=== PATIENT | male | born 1955 | race Caucasian/White ===

== ENCOUNTER 2018-10-17 15:18 | Observation (INO) ==
[2018-10-17] MEDS ORDERED: ASPIRIN PO ONE (15:31)
--- NOTE | 2018-10-17 15:45 | EKG Report ---
Test Performed on : 10/17/2018 3:23:21 PM Test Reason : cp Blood Pressure : / mmHG Vent. Rate : 070 BPM Atrial Rate : 070 BPM P-R Int : 116 ms QRS Dur : 082 ms QT Int : 394 ms P-R-T Axes : 086 022 019 degrees QTc Int : 425 ms Normal sinus rhythm. Normal ECG No previous ECGs available Unconfirmed Result
--- NOTE | 2018-10-17 16:00 | Diag Imaging Result Doc PS360 ---
EXAM: CHEST-2 VIEWS 10/17/2018 HISTORY: cp TECHNIQUE: PA and lateral chest COMMENT: There are sternotomy wires. There is COPD. There is apparent atelectasis or fibrosis in both lung bases particularly anteriorly. There are no previous studies available for comparison. IMPRESSION: COPD. Atelectasis versus fibrosis particularly in the anterior left base. Electronically signed by Amado Walls 10/17/2018 3:57 PM
[2018-10-17 16:13] LABS: PTT 28.9 Seconds (22.3-41.8)
[2018-10-17 16:16] LABS: BASO# 0.13 X1000 (0.0-0.2); BASO% 1.5 % (0.0-0.8); EOS# 0.87 X1000 (0.0-0.7); EOS% 9.8 % (0.0-10.0); HEMATOCRIT 42.5 % (42.0-52.0); HEMOGLOBIN 14.5 g/dL (14.0-18.0); LYMPH# 2.68 X1000 (1.2-3.4); LYMPH% 30.1 % (20.5-51.1); MCH 29.8 PG (27-31); MCHC 34.1 g/dL (33-37); MCV 87.3 FL (81-99); MONO# 0.78 X1000 (0.11-0.59); MONO% 8.8 % (1.7-9.3); NEUT# 4.44 X1000 (1.4-6.5); NEUT% 49.8 % (42.2-75.2); PLT 408 X1000 (130-400); RBC 4.87 XMIL (4.7-6.1); RDW 13.9 % (11.5-14.5)
[2018-10-17 16:33] LABS: ALB/GLOB RATIO 1.4; ALBUMIN 4.5 g/dL (3.5-5.0); CREATININE 1.7 mg/dL (0.7-1.2); POTASSIUM 4.4 mmol/L (3.5-5.1); TOTAL BILIRUBIN 0.33 mg/dL (0.20-1.00); TOTAL PROTEIN 7.8 g/dL (6.3-8.3)
[2018-10-17] MEDS ORDERED: ASPIRIN ONE (20:10)
[2018-10-17] MEDS ORDERED: LIPITOR PO SCH (21:00)
[2018-10-17] MEDS ORDERED: DUONEB (A & A) INH PRN (21:42)
[2018-10-17] MEDS ORDERED: NS 1,000 ML IV PRN (21:53)
--- NOTE | 2018-10-17 21:59 | HISTORY AND PHYSICAL ---
PRIMARY CARE PHYSICIAN: Dr. Meyer. CHIEF COMPLAINT: Chest pain. HISTORY OF PRESENTING ILLNESS: A 62-year-old male, with a history of coronary artery disease, hyperlipidemia, and diabetes mellitus type 2, who presented to emergency department with 3 months history of having intermittent chest pain. Patient states that it was worse with exertion and was mostly substernal, pressure-like, and he was nauseated. For the past several days, his chest pain seemed to be worsening and he was having shortness of breath, and subsequently he had come to the emergency department. In the ED, he was evaluated and due to the presenting symptoms, it was thought that he would need admission for further management. At the time of my examination, patient denied any headache, fever, chills, hemoptysis, melena, weight changes, but complained of chest pain and shortness. PAST MEDICAL HISTORY: Includes: 1. Diabetes mellitus type 2. 2. Hyperlipidemia. 3. Coronary artery disease. PAST SURGICAL HISTORY: Coronary artery bypass. ALLERGIES: No known drug allergies. CURRENT MEDICATIONS: Include: 1. Aspirin 81 mg p.o. daily. 2. Atorvastatin 20 mg p.o. at bedtime. 3. Fenofibrate 145 mg p.o. daily. 4. Tramadol 50 mg p.o. t.i.d. SOCIAL HISTORY: He is a former smoker. No history of alcohol or illicit drug use. FAMILY HISTORY: Positive for coronary artery disease in his father. REVIEW OF SYSTEMS: A 14 point review of systems is as in HPI. Other systems negative. PHYSICAL EXAMINATION: GENERAL: Cooperative, friendly male. He is resting comfortably now. VITAL SIGNS: Temperature 98.0 degrees, pulse 71, respirations 18, blood pressure 148/88, saturating 98%. HEENT: Atraumatic, normocephalic. Extraocular movements intact. PERRLA. NECK: Supple. CHEST: Clear to auscultation. CARDIOVASCULAR: Regular rate and rhythm. ABDOMEN: Soft. Positive bowel sounds. EXTREMITIES: No edema. NEUROLOGIC: He is awake, alert, oriented x3. : No bladder distention. SKIN: Warm. WBCs 8.90, hemoglobin 14.5, hematocrit 42.5, platelets 408,000. Sodium 142, potassium 4.4, chloride 107, CO2 is 21, BUN is 26, creatinine is 1.7, glucose 92. Chest x-ray shows COPD. ASSESSMENT: This is a 62-year-old male, with a history of diabetes mellitus type 2, hypertension, coronary artery disease, who presented to emergency department with 3 months history of worsening chest pain with exertion. He was evaluated in the emergency department. Due to his presenting symptoms, he will require admission for further management. 1. Chest pain. 2. Coronary artery disease. 3. Diabetes mellitus type 2. 4. Hyperlipidemia. 5. Renal insufficiency. PLAN: 1. We will admit patient to medical floor with telemetry. 2. Continue with cardiac workup. Check EKG, serial cardiac enzymes. Have patient continue on aspirin. Will use sublingual nitroglycerin and morphine p.r.n. chest pain. 3. We will consult Cardiology. 4. We will put patient on glycemic protocol with sliding scale insulin regimen. 5. We will restart his home medications. 6. We will monitor renal function. 7. Continue gentle hydration. 8. Put patient on deep venous thrombosis prophylaxis with sequential compression devices. 9. We will continue to follow and reassess, and make further recommendations based on patient's clinical course. cc: Paul Fajardo MD MTDD
--- NOTE | 2018-10-17 22:01 | PROVIDER DOCUMENTATION ---
This chart was entered by Anjelica Vences Scribe, acting as scribe for Claudia Amos CRNP. HPI-Chest Pain - General Chief Complaint: Chest Pain Stated Complaint: CHEST PAIN Time Seen by Provider: 10/17/18 19:21 Source: patient Allergies/Adverse Reactions: Patient Allergies Allergy/AdvReac Type Severity Reaction Status Date / Time No Known Allergies Allergy Verified 07/08/17 23:38 Home Medications: Home Medication List Medication Instructions Recorded Confirmed Last Taken Type Aspirin [Adult Low Dose Aspirin EC] 81 mg PO DAILY 10/17/18 10/17/18 Unknown History Atorvastatin Calcium 20 mg PO QHS 10/17/18 10/17/18 Unknown History Fenofibrate [Tricor] 1 tab PO DAILY 10/17/18 10/17/18 Unknown History Multivit-Minerals/FA/Lycopene [One 1 tab PO DAILY 10/17/18 10/17/18 Unknown History Daily For Men Tablet] [place]-3 Fatty Acids/Fish Oil [Fish 1 cap PO TID 10/17/18 10/17/18 Unknown History Oil 1,000 mg Capsule] Tramadol [Ultram] 50 mg PO TID PRN 10/17/18 10/17/18 Unknown History - History of Present Illness-CP Nature of Presenting Problem: 62 y/o male presents to ED with intermittent, squeezing sternal chest pain radiating to bilateral arms and between shoulder blades and nausea onset several months ago. Pt reports activity exacerbates his pain. Pt is alert and oriented. Location: reports: central Chest Pain Radiation: reports: arms, back (between shoulder blades) Quality of Pain: reports: other (squeezing) Severity in ED: moderate Onset/Duration: other (several months ago) Timing: still present, intermittent Context/Activities at Onset: reports: none Modifying Factors: improves with: lying down. worse with: exercise Associated Symptoms: reports: back pain, nausea Nitro Today/Relief: no nitro taken today Aspirin Treatment Today: 325 mg x 1, provided by ED Prior Chest Pain/Cardiac Workup: reports: cardiac cath, other (CABG) Similar Symptoms Previously?: Yes Recently Seen Here or By Another Healthcare Provider: No Review of Systems - Adult - REVIEW OF SYSTEMS - ADULT Constitutional: denies: chills, fever Eyes: reports: no symptoms reported Ears, Nose, Mouth & Throat: reports: no symptoms reported Cardiovascular: reports: chest pain (radiates to bilateral arms and between shoulder blades). denies: palpitations Respiratory: denies: cough, shortness of breath Gastrointestinal: reports: nausea. denies: abdominal pain, diarrhea, vomiting Genitourinary: reports: no symptoms reported Musculoskeletal: reports: back pain. denies: joint pain Integumentary: reports: no symptoms reported Neurological: denies: dizziness/vertigo, seizure Psychiatric: reports: no symptoms reported Endocrine: reports: no symptoms reported Hematologic/Lymphatic: reports: no symptoms reported Allergic/Immunologic: reports: no symptoms reported All Other Systems: Reviewed and Negative Past History - Adult - PAST MEDICAL HISTORY-ADULT Review of Records: reports: Old Records Reviewed, Nursing Assessment Review, Medications Reviewed Major Childhood Illnesses: reports: denies history Cardiovascular: reports: HTN, MA Endocrine/Immune: reports: Diabetes - PRIOR SURGERIES/PROCEDURES Surgical/Procedure History: reports: CABG, gastric bypass - IMMUNIZATION STATUS Childhood Immunizations: See Nurse Assessment Flu Vaccine: See Nurse Assessment - FAMILY HISTORY Family History: reviewed, not pertinent - SOCIAL HISTORY Smoking: quit greater than 1 year Substance Use: none/never Alcohol Use Frequency: never Living Situation: family Physical Exam-General - PHYSICAL EXAM-ADULT Initial Vital Signs Reviewed: Yes - CONSTITUTIONAL General Appearance: appears well, alert, no apparent distress - EYES Eyes: PERRL/EOMI, pink conjunctivae - HEAD, EARS, NOSE, MOUTH & THROAT HENMT: normocephalic/atraumatic, moist mucous membranes, normal ENT inspection - NECK Neck: non-tender, full range of motion - RESPIRATORY Respiratory: lungs clear, normal breath sounds, other (sternal tenderness) - CARDIOVASCULAR Cardiovascular: normal peripheral pulses, regular rate, rhythm - GASTROINTESTINAL (ABDOMEN) Abdominal Exam: normal bowel sounds, non tender, soft - MUSCULOSKELETAL Back Exam: normal inspection, no CVA tenderness Extremity: normal range of motion, non-tender, normal gait - SKIN Integumentary: normal color, warm/dry - NEUROLOGIC Neurologic: grossly normal - PSYCHIATRIC Psych/Mental Status: normal mood/affect, normal thought content, normal thought process - HEART Score HEART Score: History: Moderately Suspicious HEART Score: ECG: Normal HEART Score: Age: 45-65 Years HEART Score: Risk Factors for Atherosclerotic Disease: > or = 3 Risk Factors or History of Atherosclerotic Disease HEART Score: Troponin: < or = Normal Limit Total HEART Score:: 4 Progress - PLAN OF CARE/RESULTS Progress/Plan/Lab Results: Vital Signs - 8 hr 10/17/18 15:29 10/17/18 19:15 10/17/18 19:32 Temperature 98.0 F 97.8 F Pulse Rate 71 60 60 Respiratory Rate 18 18 16 Blood Pressure 148/88 146/77 180/88 O2 Sat by Pulse Oximetry 98 100 100 10/17/18 19:34 10/17/18 19:35 10/17/18 19:50 Temperature Pulse Rate 55 L 56 L 55 L Respiratory Rate 16 14 12 Blood Pressure 157/86 O2 Sat by Pulse Oximetry 99 99 99 10/17/18 20:01 Temperature Pulse Rate 57 L Respiratory Rate 14 Blood Pressure 147/80 O2 Sat by Pulse Oximetry 99 Laboratory Results - last 24 hr 10/17/18 10/17/18 10/17/18 15:32 15:32 15:32 WBC 8.90 RBC 4.87 Hgb 14.5 Hct 42.5 MCV 87.3 MCH 29.8 MCHC 34.1 RDW Std Deviation 13.9 Plt Count 408 H MPV 9.0 Immature Gran % (Auto) 0.0 Neut % (Auto) 49.8 Lymph % (Auto) 30.1 Fajardo % (Auto) 8.8 Eos % (Auto) 9.8 Baso % (Auto) 1.5 H Immature Gran # (Auto) 0.00 Neut # (Auto) 4.44 Lymph # (Auto) 2.68 Fajardo # (Auto) 0.78 H Eos # (Auto) 0.87 H Baso # (Auto) 0.13 PT INR PTT (Actin FS) Sodium 142 Potassium 4.4 Chloride 107 Carbon Dioxide 21 L Anion Gap 14 BUN 26 H Creatinine 1.7 H Estimated GFR/1.73 m2 41 BUN/Creatinine Ratio 15 Glucose 92 Calculated Osmolality 288 Calcium 9.0 Total Bilirubin 0.33 AST 23 ALT 13 Alkaline Phosphatase 56 Creatine Kinase 149 Troponin T Ban-K-Qlihohggxrq Pept 483 H Total Protein 7.8 Albumin 4.5 Globulin 3.3 Albumin/Globulin Ratio 1.4 10/17/18 10/17/18 15:32 15:32 WBC RBC Hgb Hct MCV MCH MCHC RDW Std Deviation Plt Count MPV Immature Gran % (Auto) Neut % (Auto) Lymph % (Auto) Fajardo % (Auto) Eos % (Auto) Baso % (Auto) Immature Gran # (Auto) Neut # (Auto) Lymph # (Auto) Fajardo # (Auto) Eos # (Auto) Baso # (Auto) PT 14.0 INR 1.00 PTT (Actin FS) 28.9 Sodium Potassium Chloride Carbon Dioxide Anion Gap BUN Creatinine Estimated GFR/1.73 m2 BUN/Creatinine Ratio Glucose Calculated Osmolality Calcium Total Bilirubin AST ALT Alkaline Phosphatase Creatine Kinase Troponin T < 0.010 Xvi-C-Rigpkmrsduj Pept Total Protein Albumin Globulin Albumin/Globulin Ratio Orders Category Date Time Status Admit [facility] Routine AdmDCTranf 10/17/18 21:53 Active Activity - Up with Assistance ORDERED Care 10/17/18 21:53 Active Apply Mechanical Device [QM] ORDERED Care 10/17/18 21:53 Active Cardiac Monitoring DIRECTED Care 10/17/18 15:32 Completed FSBS/Accucheck Result AC + HS Care 10/17/18 21:53 Active Intake and Output-Strict ORDERED Care 10/17/18 21:53 Active Nursing- MD Consult Request ROUTINE Care 10/17/18 21:53 Active Vital Signs Order Q 8-HR ASSESS Care 10/17/18 21:53 Active Z-Document. for Tele Applied ORDERED Care 10/17/18 21:53 Active Physician/Provider Consults Routine Cons 10/17/18 21:53 Ordered NPO Diet 10/18/18 00:01 Active CHEST-2 VIEWS [RAD] Stat Exams 10/17/18 15:32 Completed BASIC METABOLIC PANEL [CHEM] Routine Lab 10/18/18 06:00 Ordered CBC WITH ELECTRONIC DIFF [HEME] Stat Lab 10/17/18 15:32 Completed CBC WITH NO DIFF [HEME] Routine Lab 10/18/18 06:00 Ordered CK PROFILE [SP CHEM] Stat Lab 10/17/18 15:32 Completed COMPREHENSIVE METABOLIC PANEL [CHEM] Stat Lab 10/17/18 15:32 Completed PRO B-NATRIURETIC PEPTIDE Stat Lab 10/17/18 15:32 Completed PROTIME WITH INR [COAG] Stat Lab 10/17/18 15:32 Completed PTT [COAG] Stat Lab 10/17/18 15:32 Completed TROPONIN T Q8HR Lab 10/18/18 05:00 Ordered TROPONIN T Q8HR Lab 10/18/18 13:00 Ordered TROPONIN T Q8HR Lab 10/18/18 21:00 Ordered TROPONIN T Stat Lab 10/17/18 15:32 Completed 0.9% Sodium Chloride Inj [Ns] 1,000 ml Med 10/17/18 21:53 Active IV 75 mls/hr ATORVAstatin [Lipitor] Med 10/18/18 21:00 Ordered 20 mg PO QHS Albuterol 2.5MG/Ipratrop 0.5MG [Duoneb (A & A)] Med 10/17/18 21:42 Discontinued 3 ml INH RTQ4H PRN Aspirin Med 10/17/18 20:10 Discontinued 325 mg .ROUTE .STK-MED ONE Aspirin Med 10/17/18 15:31 Discontinued 325 mg PO NOW ONE Aspirin EC Med 10/18/18 09:00 Ordered 81 mg PO DAILY Fenofibrate [Tricor] Med 10/18/18 09:00 Ordered DOSE mg PO DAILY Insulin Human Regular [Humulin R] Med 10/18/18 07:00 Active See Protocol SUBQ 0700,1100,1600,2100 Multivit-Minerals/FA/Lycopene [One Daily For Men Tablet Med 10/18/18 09:00 Ordered ] 1 tab PO DAILY [place]-3 Fatty Acids/Fish Oil [Fish Oil 1,000 mg Capsule Med 10/18/18 09:00 Ordered ] 1 cap PO TID Aerosol Treatments Routine Oth 10/17/18 21:42 Active Aerosol Treatments Stat Oth 10/17/18 21:42 Active Telemetry [OM.EQ] Routine Oth 10/17/18 21:53 Active EKG [EKG] Stat Ther 10/17/18 15:32 Draft Transfer/Admit Order [TRANSFER] Routine Transfer 10/17/18 21:38 Completed Result Diagrams: 10/17/18 15:32 10/17/18 15:32 - EKG 1 Time of EKG reading by physician:: 19:21 EKG Read and Signed by:: Kayden Tafoya EKG Interpretation (*Must complete 3 of following elements*): Normal Rate: 70 Rhythm: NSR [place]: normal QRS: normal MS Interval: normal ST Wave: normal - XRAY 1 XRAY Study: Chest Impression: Abnormal ([facility] [address], [address], [place] [address] Department of Imaging Patient: BRENDAN HUGGINSADM Date: 10/17/18MR#: [id number] : 7ADM Status: PRE ERAcct#: [id number] Age/Sex: 62/MRoom/Bed: Loc: ED Ordering Physician: Timothy Rios MD Family Physician: Flynn Meyer MD Reason for Procedure: cp Signed EXAM: CHEST-2 VIEWS 10/17/2018 HISTORY: cp TECHNIQUE: PA and lateral chest COMMENT: There are sternotomy wires. There is COPD. There is apparent atelectasis or fibrosis in both lung bases particularly anteriorly. There are no previous studies available for comparison. IMPRESSION: COPD. Atelectasis versus fibrosis particularly in the anterior left base. Electronically signed by Amado Walls 10/17/2018 3:57 PM 10/17/18 155 Interpreting Physician: Amado Walls MD Dictated Date/Time: 10/17/181556 cc: Timothy Rios MD; Flynn Meyer MD) - CONSULTS/PCP/HOSPITALIST Notification #1 *Consult/PCP/Hospitalist*: Dr. Fajardo Time Discussed: 19:36 Reason/Comments: Chest pain Consult Disposition: Admit Departure - Departure Date of Disposition Decision: 10/17/18 Time of Disposition Decision: 19:27 DIAGNOSIS: Chest pain Qualifiers: Chest pain type: unspecified Qualified Code(s): R07.9 - Chest pain, unspecified Disposition: ADMITTED INPATIENT 09 Certified Medical Emergency: Emergent Condition: Stable Referrals and Follow-Ups: Flynn Meyer MD [Primary Care Provider] - - Critical Care Note This patient required my direct & personal management of CC.: No Attestation - Physician/ JD Attestation Patient care was provided by Advanced Practice Provider:: Yes Advanced Practice Provider:: Claudia Amos Advanced Practice Provider documentation review:: The Mid-level provider alisha patiño, treatment plan and medical decision making was reviewed by the physician who agrees with all treatment and medical decision making by the MLP. The physician spent face to face time with patient:: No Advanced Practice Provider documentation review:: Supervising physician onsite and consulted in the evaluation and care of this patient. The physician did not have a face to face encounter with the patient. This chart was documented by the indicated scribe, (Anjelica Vences, Jorge) and accurately reflects the services I performed and decisions made by , Claudia Amos CRNP, as attested by the provider's signature.
[2018-10-17] MEDS: FISH OIL CONCENTRATE PO SCH (23:36)
[2018-10-18] MEDS: HUMULIN R SUBQ SCH ×4 (06:03→21:09)
[2018-10-18 08:38] LABS: HEMATOCRIT 43.3 % (42.0-52.0); HEMOGLOBIN 14.5 g/dL (14.0-18.0); MCH 29.9 PG (27-31); MCHC 33.5 g/dL (33-37); MCV 89.3 FL (81-99); MPV 8.7 FL (7.4-10.4); RBC 4.85 XMIL (4.7-6.1); RDW 14.4 % (11.5-14.5); WBC 7.24 X1000 (4.8-10.8)
[2018-10-18 09:01] LABS: CALCIUM 9.1 mg/dL (8.8-10.2); CREATININE 1.5 mg/dL (0.7-1.2)
--- NOTE | 2018-10-18 09:57 | EKG Report ---
Test Performed on : 10/18/2018 09:38:14 AM Test Reason : chest pain Blood Pressure : / mmHG Vent. Rate : 058 BPM Atrial Rate : 058 BPM P-R Int : 124 ms QRS Dur : 084 ms QT Int : 440 ms P-R-T Axes : 076 018 035 degrees QTc Int : 431 ms Sinus bradycardia. Otherwise normal ECG When compared with ECG of 17-OCT-2018 15:23, (Unconfirmed) No significant change was found Confirmed by Sara BIGGS, Idris Crawford ([id number]) on 10/19/2018 11:59:54 AM
--- NOTE | 2018-10-18 11:52 | CARDIOLOGY CONSULTATION ---
DATE: 10/18/2018 SUBJECTIVE: A 62-year-old, gentleman, with known history of coronary artery disease, coronary artery bypass grafting, who has been doing well. For the last 4 months he has been complaining of having noticed increasing episodes of chest discomfort. This has gradually worsened. He has retrosternal chest discomfort on significant exertion, which is radiating to the back and down both arms. These symptoms of late have been on a daily occurrence. Associated with the chest pain he has some shortness of breath, and symptoms are relieved with rest. He came to the emergency room and was subsequently admitted. REVIEW OF SYSTEMS: A 14-point review of system was done.GI System: There is no history of nausea, vomiting, or diarrhea. There is no history of hematemesis or melena. Central nervous system: No focal weakness to suggest a CVA or TIA. System: There is no dysuria or hematuria. Respiratory System: There is no history of cough, expectoration, or hemoptysis. Constitutional: There is no history of fevers or chills. PAST MEDICAL HISTORY: Coronary artery disease, status post coronary artery bypass grafting, on 06/15/2004 with TAVARES to left anterior descending artery, saphenous vein graft to posterolateral branch of the right coronary artery. Hyperlipidemia. He is a former smoker. ALLERGIES: He is not known to be allergic to any medications. HOME MEDICATIONS: Aspirin 81 mg a day. Fenofibrate 145. Tramadol 50 t.i.d. Atorvastatin 20. PHYSICAL EXAMINATION: Vital Signs: Blood pressure was 140/80. Cardiovascular System: Normal jugular venous pressure. There is no thyromegaly, no carotid bruit. First and second sounds were heard. There is no S3, S4 or gallop. Respiratory System: Normal air entry. There is no crepitation or rhonchi. Abdomen: Soft, nontender. There was no guarding or rigidity. Bowel sounds were heard. Central nervous system: Alert. Moving all 4 extremities. Extremities: Examination of the extremities revealed no pedal edema. HEENT: Atraumatic, normocephalic. Pupils were equal and reacting to light. ASSESSMENT AND PLAN: Mr. Carlos Manuel Crook is a 62-year-old gentleman, with history of coronary artery disease, status post coronary artery bypass grafting, and hyperlipidemia, who comes in with complaints of increasing chest discomfort, with chest pain worsening over the last 1 week. The patient has unstable angina. He has been ruled out for myocardial infarction by cardiac enzymes. PLAN: 1. Given his typical anginal symptoms, I have recommended that he undergo left heart catheterization. Risks, benefits, and alternatives were explained. The patient will be set up for left heart catheterization. 2. His creatinine was 1.7 when he came in, it is down to 1.5. We will continue hydration and check his BMP in the morning. 3. As far as medications are concerned, we will put him on Lovenox today in addition to aspirin and beta-blockers. 4. He has hyperlipidemia. He is on fenofibrate, and atorvastatin 20. I will increase the atorvastatin to 40 mg a day. 5. We will get an echocardiogram to assess cardiac and valvular function. Thank you for the consult. We will follow in the hospital course. cc: Luisito Escamilla MD
[2018-10-18] MEDS ORDERED: SODIUM BICARBONATE 8.4% 150 MEQ in STERILE WATER INJ. 1,000 ML IV SCH (12:00)
[2018-10-18] MEDS: FISH OIL CONCENTRATE PO SCH ×5 (13:43→21:16)
[2018-10-18] MEDS: ASPIRIN EC PO SCH (13:44)
[2018-10-18] MEDS: TRICOR PO SCH (13:47)
[2018-10-18] MEDS: THERA M PLUS PO SCH (13:47)
--- NOTE | 2018-10-18 13:49 | PROGRESS NOTE ---
DATE: 10/18/2018 SUBJECTIVE: Mr. Crook is a 62-year-old followed Dr. Chau, has a history of coronary artery disease, hyperlipidemia, diabetes mellitus type 2, presented to the emergency department with a 3 month history of having intermittent chest pain, got worse with exertion and was mostly substernal, pressure-like. He was nauseated for a time. The past several days he has had chest pain, seemed to get worse and some of it was so severe that he had nausea with it. PAST MEDICAL HISTORY: 1. Diabetes mellitus type 2. 2. Hyperlipidemia. 3. Coronary artery disease. PAST SURGICAL HISTORY: Status post coronary artery bypass graft. OBJECTIVE: General: He has not had any further chest pain today. Vital signs: He has remained afebrile, temperature 97.9 degrees, pulse 53, respirations 19, blood pressure 145/64. HEENT: Pupils are equal and round. Lungs: Clear in all lung egan. Cardiovascular: Regular rhythm and rate without murmur or S3. Abdomen: Soft. Skin: Warm and dry. REVIEW OF LABORATORY DATA: White count 8900, hematocrit 42, platelet count 408,000. Sodium 141, potassium 4.0, chloride 105, BUN 23, creatinine 1.5 which has come down from 1.7 yesterday. ASSESSMENT AND PLAN: 1. Chest pain with components that sound consistent with unstable angina, so I think the plan is to pursue a left heart catheterization. I think he is getting an echocardiogram today. 2. Hypercholesterolemia. Aware. 3. Note patient is on Lovenox 1 mg/kg subcutaneously q.12, getting Tricor 145 mg daily, Lopressor 25 mg b.i.d., aspirin 325 mg a day, omega-3 fatty acids 1000 mg t.i.d., Lipitor 40 mg a day, and his aspirin 81 mg a day. cc: Idris Ruiz MD
[2018-10-18] MEDS: LOPRESSOR PO SCH ×2 (14:19→21:16)
[2018-10-18] MEDS: LOVENOX SUBQ SCH ×2 (14:21→22:03)
[2018-10-18] MEDS ORDERED: LIPITOR PO SCH (21:00)
--- NOTE | 2018-10-18 23:32 | ECHO REPORT ---
ORDER DATE: 10/18/2018 MEASUREMENTS: Septal thickness 0.9, left ventricular internal diameter in diastole 4.8, posterior wall thickness 0.9, left ventricular internal diameter in systole 3.0, aortic root 3.5, left atrium 4.1. SUMMARY: 1. Fair quality study. 2. The aortic valve is trileaflet and opens normally on 2-dimensional images. Peak gradient across the aortic valve is less than 5 mmHg. Mitral, tricuspid, and pulmonic valves are without evidence of structural abnormality, with very mild mitral regurgitation and trace tricuspid regurgitation. The estimated systolic PA pressure by Doppler is 30 mmHg. The aortic root is normal in size. 3. Normal left ventricular dimensions demonstrated. Estimated left ventricular ejection fraction appears to be at least 60%. No regional wall motion abnormalities are evident. The left atrium is borderline enlarged. The right atrium and right ventricle normal size with normal right ventricular systolic function. 4. No pericardial effusion. 5. Appearance of inferior vena cava suggests normal central venous pressure. CONCLUSIONS: 1. Very mild mitral regurgitation. 2. Trace tricuspid regurgitation with estimated systolic PA pressure 30 mmHg. 3. Estimated left ventricular ejection fraction at least 60%. 4. Borderline left atrial enlargement. cc: MD Minoo Beal PA
[2018-10-19] MEDS: HUMULIN R SUBQ SCH ×4 (06:02→20:44)
[2018-10-19 08:01] LABS: HEMATOCRIT 42.9 % (42.0-52.0); HEMOGLOBIN 14.2 g/dL (14.0-18.0); MCH 29.8 PG (27-31); MCHC 33.1 g/dL (33-37); MCV 90.1 FL (81-99); RBC 4.76 XMIL (4.7-6.1); RDW 14.3 % (11.5-14.5); WBC 7.39 X1000 (4.8-10.8)
[2018-10-19 08:03] LABS: INR 1.02; PROTIME 14.2 Seconds (11.0-16.0)
[2018-10-19 08:25] LABS: CALCIUM 8.9 mg/dL (8.8-10.2); CREATININE 1.4 mg/dL (0.7-1.2); HEMOGLOBIN A1C 6.4 % (4.8-6.0); MAGNESIUM 2.3 mg/dL (1.5-2.7); POTASSIUM 4.3 mmol/L (3.5-5.1)
[2018-10-19 08:29] LABS: CHOLESTEROL 159 mg/dL (0-200); HDL 31 mg/dL (35-55); LDL 105 mg/dL; TRIGLYCERIDES 116 mg/dL (39-160); VLDL 23 mg/dL
[2018-10-19] MEDS ORDERED: HEPARIN 1000 UNITS/NS 2,000 UNIT/1,000 ML IV.SOLN ONE (10:08)
[2018-10-19] MEDS ORDERED: DILAUDID ONE (13:09)
[2018-10-19] MEDS ORDERED: VERSED ONE (13:09)
[2018-10-19] MEDS ORDERED: ANESTHESIA PB SET 88 IN 5742 ONE (13:09)
[2018-10-19] MEDS ORDERED: NS 1,000 ML ONE (13:09)
[2018-10-19] MEDS ORDERED: CLAVE TWINSITE 32 IN 11959 ONE (13:09)
[2018-10-19] MEDS: FISH OIL CONCENTRATE PO SCH ×3 (14:29→20:44)
[2018-10-19] MEDS ORDERED: NS 1,000 ML IV SCH (14:30)
[2018-10-19] MEDS ORDERED: NS 1,000 ML IV ONE (14:45)
[2018-10-19] MEDS: LOPRESSOR PO SCH ×2 (14:54→20:45)
[2018-10-19] MEDS: THERA M PLUS PO SCH (14:54)
[2018-10-19] MEDS: ASPIRIN EC PO SCH (14:55)
--- NOTE | 2018-10-19 18:00 | CARDIAC CATH REPORT ---
DATE: 10/19/2018 CHIEF COMPLAINT, INDICATION FOR PROCEDURE: Unstable angina, history of coronary artery disease with coronary artery bypass grafting. PROCEDURES PERFORMED: 1. Left heart catheterization. 2. Selective coronary angiography. 3. SHARRON angiography. 4. Saphenous vein graft angiography. 5. Aortic root angiography. PROCEDURE IN DETAIL: Mr. Crook was brought to the Cardiac Catheterization Laboratory in a fasting state. Informed consent was obtained. The patient was prepped and draped in the usual sterile fashion. He was anesthetized over the right femoral artery and a 5-Yi sheath was placed via modified Seldinger technique. Catheters were introduced. Hemodynamic measurements were made of the ascending thoracic aorta. Coronary angiography was performed in multiple views using JL4 and JR4 diagnostic catheters. SHARRON and vein graft angiography were performed using the JR4. Aortic root shot was performed using a pigtail. At the conclusion of the procedure, all sheaths and catheters were removed. Pressure was held with good hemostasis. Estimated blood loss was 5-10 mL. Contrast used was 120 mL of Visipaque. FINDINGS: 1. The left main has minor luminal irregularities. 2. The left anterior descending originates from the left main. There is severe proximal disease in the left anterior descending. The LAD was visualized as well through SHARRON angiography. It is a small vessel. There is a first diagonal, which appears to come off the point of the lesion, appears to have minor luminal irregularities. 3. The circumflex originates from the left main. There is a proximal 80% lesion. This vessel is not bypassed. 4. The right coronary artery originates from the right coronary cusp. It is occluded proximally. It is visualized through saphenous vein graft angiography. The vessel backfills from the vein graft all the way to the proximal occlusion. In the late mid vessel, there does appear to be a severe lesion on the order of 80%. The remainder of the vessel appears patent with minor luminal irregularities. The distal right coronary and PDA appear to fill well via the vein graft. 5. Aortic root shot demonstrated mild aortic insufficiency. Identified the origin of the vein graft. 6. The saphenous vein graft to the right coronary is patent with minor irregularities. 7. The TAVARES to LAD is patent. No significant lesions. 8. Aortic blood pressure 122/92 with a mean of 95. Left ventricular pressure 138/9 with LVEDP of 15. Notably, there were no pullback gradients across the SHARRON. ASSESSMENT: Mr. Crook is a 62-year-old gentleman with a history of coronary artery bypass grafting who presents with unstable angina. PLAN: He has negative cardiac enzymes. He appears to have a severe proximal circumflex lesion. We are pending evaluation with [facility] regarding interventional prospects to that proximal vessel. cc: Brandan Brooke MD [facility]ITALGaurav
[2018-10-19] MEDS: TRICOR PO SCH (20:44)
[2018-10-19] MEDS: LIPITOR PO SCH (20:45)
[2018-10-20] MEDS: HUMULIN R SUBQ SCH ×4 (06:06→20:45)
[2018-10-20 06:08] LABS: CALCIUM 8.8 mg/dL (8.8-10.2); CREATININE 1.4 mg/dL (0.7-1.2); POTASSIUM 3.8 mmol/L (3.5-5.1)
--- NOTE | 2018-10-20 07:08 | PROGRESS NOTE ---
DATE: 10/20/2018 Mr. Crook says he has not had any further chest pain. He only gets discomfort when he exerts himself. OBJECTIVE: Vital Signs: He remains afebrile, temperature 97.6 degrees, pulse 47, respirations 15, blood pressure 116/65. HEENT: Pupils are equal and round. Neck: No distended neck veins. Lungs: Lungs are clear anterolateral. Cardiovascular: Regular rhythm and rate without murmur or S3. Abdomen: Soft. Skin: Warm and dry. Blood sugars 124, 91 and 90. Had a left heart catheterization yesterday and this appears to be consistent with unstable angina. He has negative cardiac enzymes. Appears to have severe proximal circumflex lesion. Dr. Brandan Brooke following and did the heart catheterization and so waiting to see if he is a candidate for intervention on his circumflex. 2) Hypercholesterolemia. Aware. REVIEW OF CURRENT ORDERS: The patient is getting Lipitor 80 mg at bedtime, aspirin 81 mg a day, Tricor 145 mg a day, Lopressor 25 mg b.i.d., omega-3 fatty acids 1000 mg t.i.d. Getting normal saline at the present time but I think he is at keep vein open. We have turned down the fluids. His electrolytes: Sodium 138, potassium 3.8, chloride 104, BUN 22, creatinine 1.4 which is stable. I think he presented with creatinine 1.7, so that is actually improved a little bit. cc: Idris Ruiz MD
[2018-10-20] MEDS: ASPIRIN EC PO SCH (08:51)
[2018-10-20] MEDS: LOPRESSOR PO SCH ×2 (08:52→20:45)
[2018-10-20] MEDS: TRICOR PO SCH (08:52)
[2018-10-20] MEDS: FISH OIL CONCENTRATE PO SCH ×3 (08:52→20:46)
[2018-10-20] MEDS: THERA M PLUS PO SCH (08:52)
--- NOTE | 2018-10-20 13:03 | CARDIOLOGY PROGRESS NOTE ---
DATE: 10/20/2018 CHIEF COMPLAINT: Patient with chest discomfort. SUBJECTIVE: Mr. Crook is feeling somewhat better. He is not having a whole lot of symptoms, feels fine. He is eating his lunch. OBJECTIVE: Vital signs: Blood pressure 121/68, temperature 98.2, pulse 65, respirations 15. General: He is awake, alert, in no distress. HEENT: Unremarkable. Chest: Clear to auscultation and percussion. Heart: Sounds are regular and rhythmic. No gallop or murmur. Abdomen: His abdomen nontender. Extremities: Showed no edema. Neurologic exam: Follows commands, moves all 4 extremities. BLOOD WORK: Sodium 138, potassium 3.8, BUN is 22, creatinine 1.4. It has not changed. IMPRESSION: 1. Patient with severe coronary heart disease.s/p CABG. Presenting with crescendo/unstable angina. Heart catheterization done yesterday shows severe stenosis of proximal left anterior descending with a patent left internal mammary artery and significant stenosis of circumflex. His right coronary artery system is patent through a vein graft. 2. History of hyperlipidemia, history of tobacco use. RECOMMENDATIONS: At this time, the patient is awaiting opinion from [place] regarding whether or not he will be a candidate for intervention to the circumflex system and possibly to LAD. At this time, the patient is clinically stable. We will continue to observe him in [facility]. cc: Indra Kaye MD [facility]
[2018-10-20] MEDS: LIPITOR PO SCH (20:45)
[2018-10-20] MEDS: RANEXA PO SCH (20:46)
[2018-10-21] MEDS: HUMULIN R SUBQ SCH ×4 (06:38→21:39)
--- NOTE | 2018-10-21 07:32 | PROGRESS NOTE ---
DATE: 10/21/2018 SUBJECTIVE: Mr. Crook had a good night. He has not had any further chest pain. He really only gets chest pain with exertion by his report. OBJECTIVE: Temperature is 97.5 degrees, pulse 64, respirations 15, blood pressure 144/71. Pupils are equal and round. Lungs are clear in all lung egan. Cardiovascular Examination: Regular rhythm and rate without murmur or S3. Abdomen is soft. Skin is warm and dry. Urine output is 2700 mL. Blood sugars 90, 132, 117. ASSESSMENT AND PLAN: 1. Patient with severe coronary artery disease. Heart catheterization showed severe stenosis of proximal left anterior descending and patent left internal mammary artery, and significant stenosis of circumflex. His right coronary artery system is patent through a vein graft. Waiting to go to [place], I think tomorrow, see if he is eligible for intervention. 2. Hyperlipidemia. 3. History of diabetes mellitus type 2. His sugars are well controlled. REVIEW OF ORDERS: He is on Lipitor 80 mg at bedtime, Norvasc 5 mg a day, aspirin 81 mg a day, Tricor 145 mg a day, Lopressor 25 mg p.o. b.i.d., multivitamin 1 a day, omega-3 fatty acids 1000 mg t.i.d., Ranexa 500 mg b.i.d., normal saline at 100 mL an hour and that was discontinued. He is at keep vein open now for fluids. cc: Idris Ruiz MD
[2018-10-21] MEDS ORDERED: NORVASC PO SCH (09:00)
[2018-10-21] MEDS: THERA M PLUS PO SCH (09:18)
[2018-10-21] MEDS: ASPIRIN EC PO SCH (09:18)
[2018-10-21] MEDS: LOPRESSOR PO SCH ×2 (09:18→20:31)
[2018-10-21] MEDS: FISH OIL CONCENTRATE PO SCH ×3 (09:19→20:31)
[2018-10-21] MEDS: RANEXA PO SCH ×2 (09:19→20:31)
[2018-10-21] MEDS: TRICOR PO SCH (09:19)
--- NOTE | 2018-10-21 16:17 | CARDIOLOGY PROGRESS NOTE ---
DATE: 10/21/2018 CHIEF COMPLAINT: Chest pain. SUBJECTIVE: Mr. Crook has been up and about. He has been walking down the hallway. No recurrent angina. His groin feels fine. OBJECTIVE: Vital signs: Blood pressure is 101/58, temperature 98.2, pulse 63, respirations 12. General: The patient is awake, alert, oriented, in no distress. HEENT: Unremarkable. Chest: Clear to auscultation and percussion. Heart: Sounds are regular and rhythmic without gallop or murmur. Abdomen: Soft, nontender. No masses or hepatomegaly. Extremities: Showed no edema. Neurologic exam: Follows commands, moves all four extremities. BLOOD WORK: Sodium 138, potassium 3.8, BUN is 22, creatinine 1.4. IMPRESSION: 1. Patient who presented with crescendo angina pectoris. 2. Status post coronary artery bypass surgery. 3. History of hyperlipidemia. 4. Remote history of tobacco use. He quit in 2004. 5. Angiographic evidence of progression of disease, including left anterior descending and circumflex. RECOMMENDATIONS: At this time, the patient is awaiting a transfer to [facility] for management of his severe circumflex and LAD stenosis. At this time, the patient is stable. We have added ranolazine to his regimen and he is also on amlodipine. Hopefully, he will do better with intervention. We will see. cc: Indra Kaye MD
[2018-10-21] MEDS: LIPITOR PO SCH (20:31)
[2018-10-22 05:52] LABS: HEMOGLOBIN 13.9 g/dL (14.0-18.0); MCH 29.8 PG (27-31); MCHC 33.1 g/dL (33-37); MCV 89.9 FL (81-99); MPV 9.2 FL (7.4-10.4); RBC 4.67 XMIL (4.7-6.1); RDW 14.5 % (11.5-14.5); WBC 9.05 X1000 (4.8-10.8)
[2018-10-22 05:59] LABS: INR 0.97; PROTIME 13.7 Seconds (11.0-16.0)
[2018-10-22 06:16] LABS: CALCIUM 9.5 mg/dL (8.8-10.2); CREATININE 1.7 mg/dL (0.7-1.2); POTASSIUM 3.9 mmol/L (3.5-5.1)
[2018-10-22] MEDS: HUMULIN R SUBQ SCH (06:33)
[2018-10-22 07:10] VITALS: BP 131/76
== END 2018-10-22 08:20 | disposition short-term general hospital (02) ==
LOC: 3N 15:18 → ED 15:18 → SUATTDRO 22:47 → 3S 10-19 12:33
PROVIDERS: ATTEND Emergency Medicine
CPT/HCPCS: 71020; 71046; 80048; 80053; 80061; 82550; 82948; 83036; 83735; 83880; 84484; 85025; 85027; 85610; 85730; 93005; 93010; 93306; 93459; 93567; 93568; 99285; A9270; J1170; J1644; J1650; J2250; J7030; Q9967; XXXXX